=== PATIENT | female | born 1940 | race Caucasian/White ===

== ENCOUNTER 2021-03-29 09:53 | Emergency (ER) | payer BC, OTHER ==
[2021-03-29 09:59] VITALS: TEMP 97.9; BMI 32.3
[2021-03-29 11:25] LABS: BASO % 0.3 % (0-2.0); EOS % 2.4 % (0-4.5); HEMATOCRIT 40.2 % (32.4-45.2); HEMOGLOBIN 12.9 GM/dL (10.7-15.3); LYMPH % 22.5 % (8-40); MCH 28.7 pg (25.7-33.7); MCHC 32.1 g/dl (32.0-36.0); MEAN CELL VOLUME 89.4 fl (80-96); MONO % 5.7 % (3.8-10.2); NEUT % 69.1 % (42.8-82.8); PLATELET COUNT 192 10^3/uL (134-434); RDW 14.9 % (11.6-15.6); WHITE BLOOD COUNT 7.3 K/mm3 (4.0-10.0)
[2021-03-29 11:45] LABS: CHLORIDE 102 mmol/L (98-107); SODIUM 139 mmol/L (136-145)
[2021-03-29 11:47] LABS: CALCIUM 9.4 mg/dL (8.5-10.1)
[2021-03-29 11:48] LABS: ALBUMIN 3.6 g/dl (3.4-5.0); ANION GAP 9 MMOL/L (8-16); BLOOD UREA NITROGEN 9.6 mg/dL (7-18); CO2 28 mmol/L (21-32); GLUCOSE,RANDOM 149 mg/dL (74-106)
[2021-03-29 11:51] LABS: CREATININE 0.7 mg/dL (0.55-1.3); SGOT/AST 14 U/L (15-37); SGPT/ALT 20 U/L (13-61)
[2021-03-29 11:52] LABS: TOT PROT 7.4 g/dl (6.4-8.2)
[2021-03-29 11:53] LABS: BILIRUBIN,TOTAL 0.6 mg/dL (0.2-1)
[2021-03-29 11:54] LABS: ALK PHOS 127 U/L (45-117)
[2021-03-29 11:56] VITALS: BP 135/60
[2021-03-29 11:56] LABS: N-TERMINAL BNP 43.1 pg/ml (5-450)
[2021-03-29 12:32] VITALS: PULSE 95
== END 2021-03-29 12:56 | disposition home or self-care (01) ==
LOC: JER 09:53
DX: R00.2 Palpitations (principal); R07.9 Chest pain, unspecified
CPT/HCPCS: 36415; 71045-TC-FY; 80053; 82550; 83880; 84443; 84484; 85025; 85379; 93005; 93010; 99285-25; C9803; U0003; U0005